=== PATIENT | female | born 1995 | race Caucasian/White ===

== ENCOUNTER → 2019-06-14 08:55 | Outpatient (CLI) | payer SELFPAY ==
[2019-06-14 09:38] LABS: HCG,Quantitative 40 mIU/mL
== END ==
PROVIDERS: Visit Provider Emergency Medicine
DX: Z32.00 Encounter for pregnancy test, result unknown (principal)
CPT/HCPCS: 36415; 84702

== ENCOUNTER → 2020-10-26 14:38 | Outpatient (CLI) | payer OTHER, SELFPAY ==
[2020-10-28 13:22] LABS: Covid-19 Nasal PCR Sendout Lex Not Detected
== END ==
PROVIDERS: PCP Pediatrics; Visit Provider Nurse Practitioner Family
DX: Z03.818 Encounter for observation for suspected exposure to other biological agents ruled out (principal)
CPT/HCPCS: U0004

== ENCOUNTER 2021-02-05 17:01 | Emergency (ER) | payer OTHER, SELFPAY ==
[2021-02-05 17:04] VITALS: BP 131/87; PULSE 87; RESP 19; TEMP 37.1; O2SAT 98; BMI 16.0
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
[2021-02-05 17:15] VITALS: PULSE 80; O2SAT 100
[2021-02-05 17:16] VITALS: BP 131/87; PULSE 76; PULSE 80; O2SAT 100
--- NOTE | 2021-02-05 17:39 | PC.NURSE ---
MAKENNA FROM [facility] RETURNED CALL. STATES THEY WILL BE SENDING RESOURCE INFO FOR PT
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
--- NOTE | 2021-02-05 18:49 | PC.NURSE ---
PELVIC EXAM PER DR MEDINA WITH FEMALE NURSE PRESENT
[2021-02-05 19:01] VITALS: BP 119/65; PULSE 78; RESP 16; TEMP 36.6; O2SAT 98
--- NOTE | 2021-02-05 19:01 | PC.NURSE ---
RESOURCE INFO GIVEN TO PT
== END 2021-02-05 19:03 | disposition home or self-care (01) ==
PROVIDERS: Emergency Provider Emergency Medicine; PCP Pediatrics
DX: Z04.41 Encounter for examination and observation following alleged adult rape (principal); F17.210 Nicotine dependence, cigarettes, uncomplicated
CPT/HCPCS: 99281

== ENCOUNTER 2021-10-08 04:30 | Emergency (ER) | payer BC, SELFPAY ==
[2021-10-08 04:32] VITALS: BP 135/91; PULSE 105; RESP 18; TEMP 36.6; O2SAT 100; BMI 16.2
[2021-10-08 04:41] VITALS: BMI 15.8
--- NOTE | 2021-10-08 04:42 | XR_ITS ---
PROCEDURE INFORMATION: Exam: XR Chest Exam date and time: 10/08/2021 4:42 AM Age: 26 years old Clinical indication: Pain; Shortness of breath; On breathing; Additional info: SOA, painful inspirations, headaches TECHNIQUE: Imaging protocol: XR of the chest. Views: 2 views. COMPARISON: No relevant prior studies available. FINDINGS: Lungs: No focal airspace disease. Pleural spaces: Unremarkable. No pleural effusion. No pneumothorax. Heart/Mediastinum: Cardiomediastinal silhouette is within normal limits. Bones/joints: Unremarkable. Organs: Cholecystectomy clips. IMPRESSION: No acute cardiopulmonary abnormality.
[2021-10-08 04:50] LABS: Coronavirus 19, PCR Not Detected (NotDetected); Influenza A, PCR Not Detected (NotDetected); Influenza B, PCR Not Detected (NotDetected)
[2021-10-08 04:54] LABS: Microscopic, Urine URINE MICROSCOPIC (MICROSCOPIC)
[2021-10-08 04:58] LABS: Basophils # 0.1 K/mm3 (0-0.2); Basophils % 1.4 % (0.1-2.0); Eosinophils # 0.1 K/mm3 (0.0-0.4); Eosinophils % 1.8 % (0.1-12.0); Hemoglobin 11.7 g/dL (12.2-16.2); Lymphocytes # 2.2 K/mm3 (0.7-4.5); Lymphocytes % 36.8 % (10-50); Mean Corpuscular HGB Conc 31.6 g/dL (31.8-35.4); Mean Corpuscular Hemoglobin 25.4 pg (27.0-31.2); Mean Corpuscular Volume 80.5 fl (81-99); Mean Platelet Volume 7.6 fl (7.4-10.4); Monocytes # 0.4 K/mm3 (0.1-1.0); Monocytes % 6.5 % (1.7-9.3); Neutrophils # 3.2 K/mm3 (1.8-7.8); Neutrophils % 53.5 % (37.0-80.0); Platelet Count 368 K/mm3 (142-424); Red Cell Distribution Width 13.3 % (11.5-17.5)
[2021-10-08 04:59] LABS: Appearance,Urine CLOUDY (Clear); Bilirubin,Urine Negative (Negative); Blood, Urine Negative (Negative); Color,Urine YELLOW (Yellow); Glucose,Urine (UA) Negative (Negative); Ketones,Urine Negative (Negative); Leukocyte Esterase,Urine 1+ (Negative); Nitrate,Urine Negative (Negative); Protein,Urine Negative (Negative); Specific Gravity, Urine 1.025 (1.005-1.030); Urobilinogen,Urine 0.2 EU/dl (0.2)
[2021-10-08 05:00] LABS: Urine Pregnancy, HCG Qual. Negative (Negative)
[2021-10-08 05:04] LABS: Alanine Aminotransferase 16 U/L (12-78); Albumin Level 4.6 g/dl (3.5-5.0); Albumin/Globulin Ratio 1.6 (1.1-1.8); Alkaline Phosphatase 53 U/L (38-126); Anion Gap 10.5 mEq/L (5-15); Aspartate Amino Transferase 23 U/L (14-36); Blood Urea Nitrogen 9 mg/dl (7-17); Calcium 9.1 mg/dl (8.4-10.2); Carbon Dioxide 28 mmol/L (22.0-30.0); Chloride 105 mmol/L (98-107); Creatinine Clearance Estimated 106 mL/min (50-200); Estimated Glomerular Filt Rate 103 ml/min (>60); GFR (African American) 124 ML/MIN (>60); Globulin 2.9 g/dL (1.3-3.2); Glucose 110 mg/dl (74-100); Potassium 3.5 mmoL/L (3.5-5.1); Sodium 140 mmol/L (136-145); Total Protein,Serum 7.5 g/dl (6.3-8.2)
[2021-10-08 05:07] LABS: Bilirubin,Total < 0.1 mg/dl (0.2-1.3)
[2021-10-08 05:09] LABS: C-Reactive Protein 0.6 mg/L (0-4)
[2021-10-08 05:13] LABS: Bacteria,Urine 1+ /lpf; Trichomonas,Urine 1+ /lpf
[2021-10-08 05:22] LABS: Procalcitonin 0.066 ng/mL (0.0-2.0)
[2021-10-08 05:25] LABS: Erythrocyte Sedimentation Rate 11 mm/hr (0-20)
--- NOTE | 2021-10-08 05:57 | HMH.EDSOB ---
ED Disposition Clinical Impression: Gastroenteritis, Trichomonal infection Disposition: Home, Self-Care Condition on Discharge: Good Instructions: DI for Shortness of Breath Additional Instructions: use meds and see pcp for follow up Prescriptions: metroNIDAZOLE [metroNIDAZOLE 500mg Tablet] 500 mg PO TID #21 tab Transmission Status: Pending to [facility] # ondansetron HCL [Zofran 4mg Tab] 4 mg PO TID #21 tab Transmission Status: Pending to [facility] # Referrals: Jackelyn Aldridge MD [Primary Care Provider] - - Critical Care Critical Care Time: No Attestation: On 10/08/21, the high probability of a clinically significant, sudden or life threatening deterioration of the following system(s) required my full and direct attention, intervention and personal management. The time I documented below is in addition to time spent performing reported procedures but includes the following listed in this critical care notation. Medical Decision Making - Medical Records Medical records reviewed: Yes: I reviewed the patient's medical records. - Lacho Inquiry Pt receiving controlled substance: No Vital Signs: 10/08/21 04:32 Temperature 98 F Temperature Source Oral Pulse Rate [Apical] 105 H Respiratory Rate 18 Blood Pressure [Right Arm] 135/91 H Blood Pressure Mean [Right Arm] 105 Blood Pressure Source [Right Arm] Automatic Cuff Blood Pressure Position [Right Arm] Sitting 02 Sat by Pulse Oximetry 100 Oxygen Delivery Method Room Air - Lab Data Lab results reviewed: Yes: I reviewed the patient's lab results. Lab Results 10/08/21 04:40: Urine Color Yellow, Urine Appearance Cloudy, Urine pH 6.0, Ur Specific [place] 1.025, Urine Protein Negative, Urine Glucose (UA) Negative, Urine Ketones Negative, Urine Blood Negative, Urine Nitrate Negative, Urine Bilirubin Negative, Urine Urobilinogen 0.2, Ur Leukocyte Esterase 1+ A, Urine WBC 3-5, Urine Bacteria 1+, Urine Trichomonas 1+ 10/08/21 04:40: WBC 6.0, RBC 4.60, Hgb 11.7 L, Hct 37.0, MCV 80.5 L, MCH 25.4 L, MCHC 31.6 L, RDW 13.3, Plt Count 368, MPV 7.6, Neut % (Auto) 53.5, Lymph % (Auto) 36.8, [place] % (Auto) 6.5, Eos % (Auto) 1.8, Baso % (Auto) 1.4, Neut # (Auto) 3.2, Lymph # (Auto) 2.2, [place] # (Auto) 0.4, Eos # (Auto) 0.1, Baso # (Auto) 0.1 10/08/21 04:40: Urine HCG, Qual Negative 10/08/21 04:40: Sodium 140, Potassium 3.5, Chloride 105, Carbon Dioxide 28, Anion Gap 10.5, BUN 9, Creatinine 0.70, Estimated Creat Clear 106, Estimated GFR 103, Est GFR ( Amer) 124, Glucose 110 H, Calcium 9.1, Total Bilirubin < 0.1 L, AST 23, ALT 16, Alkaline Phosphatase 53, C-Reactive Protein 0.6, Total Protein 7.5, Albumin 4.6, Globulin 2.9, Albumin/Globulin Ratio 1.6 10/08/21 04:40: ESR 11 10/08/21 04:40: Procalcitonin 0.066 10/08/21 04:45: SARS-CoV-2 (PCR) Not detected, Influenza A Untype (PCR) Not detected, Influenza Type B (PCR) Not detected Result diagrams: 10/08/21 04:40 10/08/21 04:40 Orders (Tests/Meds): ED MEDICATIONS Generic Name Dose Route Start Last Admin Trade Name Freq PRN Reason Stop Dose Admin Sodium Chloride 1,000 mls @ 999 mls/hr 10/08/21 04:45 10/08/21 05:11 Sod Chlor 0.9% 1000ml Bag IV 10/08/21 05:45 999 mls/hr .Q1H1M CATA Administration Discontinued Medications Generic Name Dose Route Start Last Admin Trade Name Freq PRN Reason Stop Dose Admin Dexamethasone Sodium Phosphate 10 mg 10/08/21 04:43 10/08/21 05:12 Dexamethasone 4mg/Ml 5ml Mdv IV 10/08/21 04:44 Not Given ONCE ONE Ketorolac Tromethamine 30 mg 10/08/21 04:43 10/08/21 05:11 Ketorolac 30mg/Ml Vial IV 10/08/21 04:44 30 mg ONCE ONE Administration Methylprednisolone Sodium Succinate 125 mg 10/08/21 05:12 10/08/21 05:13 Methylprednisolone Sod Succ 125mg Vial IV 10/08/21 05:13 125 mg ONCE ONE Administration Ondansetron HCl 4 mg 10/08/21 04:43 10/08/21 05:11 Ondansetron 4mg/2ml Vial IV 10/08/21 04:44 4 mg ONCE
[2021-10-08 06:32] VITALS: BP 124/72; PULSE 89; RESP 18; TEMP 36.7; O2SAT 100
== END 2021-10-08 06:33 | disposition home or self-care (01) ==
PROVIDERS: Emergency Provider Emergency Medicine; PCP Pediatrics
DX: K52.9 Noninfective gastroenteritis and colitis, unspecified (principal); A59.9 Trichomoniasis, unspecified; F17.210 Nicotine dependence, cigarettes, uncomplicated
CPT/HCPCS: 71046; 80053; 81001; 81025; 84145; 85025; 85651; 86140; 87086; 96365; 96375; 99283; C9803; J2405; U0003; U0005

== ENCOUNTER → 2021-10-08 15:54 | Outpatient (CLI) | payer BC, SELFPAY | PROVIDERS: PCP Pediatrics; Visit Provider Nurse Practitioner Family | DX: Z20.822 Contact with and (suspected) exposure to COVID-19 (principal); R05.1 Acute cough | CPT/HCPCS: C9803; U0003; U0005 ==

== ENCOUNTER 2022-01-21 12:25 | Emergency (ER) | payer BC, SELFPAY ==
[2022-01-21 12:40] VITALS: BP 106/73; PULSE 91; RESP 18; TEMP 36.7; O2SAT 100; BMI 17.2
--- NOTE | 2022-01-21 13:24 | HMH.EDUTC ---
[facility] Disposition Clinical Impression: Sinusitis Qualifiers: Sinusitis location: unspecified location Chronicity: unspecified Qualified Code(s): J32.9 - Chronic sinusitis, unspecified Disposition: Home, Self-Care Condition on Discharge: Good Instructions: Sinusitis, DI for Sinusitis Additional Instructions: *Monitor Temp, Over the counter Motrin or Tylenol as directed/as needed Tylenol every 4 hours and Motrin every 6 hours (as long as your family doctor has told you that you can take it) for fever or pain. and straight to ER if unable to lower temp less than 101.0 after medication given *Warm salt water gargles may help to soothe the throat *Throat Lozenges *Warm fluids like tea with honey may help to soothe the throat *Sleep elevated *Humidifier/Vaporizer Take medication as prescribed Return if needed Follow up IMMEDIATELY for new or worsening symptoms or no Noticeable improvement over the next 48-72 hours. 911 for difficulty breathing or swallowing Prescriptions: Amoxicillin/Potassium Clav [Amox-Clav 875-125 mg Tablet] 1 tab PO BID #14 tab Transmission Status: Pending to [facility] # methylPREDNISolone [Medrol 4mg tab] 4 mg PO DIRECTED #21 tab Transmission Status: Pending to [facility] # Referrals: Provider,Referral, [Primary Care Provider] - As needed Time of Disposition: 13:38 Medical Decision Making - Lacho Inquiry Pt receiving controlled substance: No Lacho was queried for this patient: No Vital Signs: 01/21/22 12:40 Temperature 98.0 F Temperature Source Oral Pulse Rate [Right Brachial] 91 H Respiratory Rate 18 Blood Pressure [Right Arm] 106/73 L Blood Pressure Mean [Right Arm] 84 Blood Pressure Source [Right Arm] Automatic Cuff Blood Pressure Position [Right Arm] Sitting 02 Sat by Pulse Oximetry 100 Oxygen Delivery Method Room Air Medical Decision Narrative: Reports last period one week ago denies [facility] HPI - General Stated complaint: pain in chest when breathing, feels heavy Time Seen by Provider: 01/21/22 13:26 Mode of Arrival: Ambulatory Source of Information: Patient Limitations: No Limitations Description of Symptoms (Recalled from Triage Doc. by RN): PATIENT C/O FEVER AND COUGH. HEENT Symptoms (Recalled from RN notes): No Resp Symptoms (Recalled from RN notes): Yes Skin Symptoms (Recalled from RN notes): No MS Symptoms (Recalled from RN notes): No Functional Status (Recalled from RN notes): WNL - History of Present Illness Provider Complaint: Patient state that she has been having sinus pain and pressure along with cough and chest congestion state that she feels like she is having drainage in the back of her throat States that last year she had bronchitis and she is worried it will turn into bronchitis again if she didnt get checked out - Related Data Previous Rx's Medication Instructions Recorded Amoxicillin/Potassium Clav 1 tab PO BID #14 tab 01/21/22 [Amox-Clav 875-125 mg Tablet] methylPREDNISolone [Medrol 4mg 4 mg PO DIRECTED #21 tab 01/21/22 tab] Allergies Allergy/AdvReac Type Severity Reaction Status Date / Time No Known Allergies Allergy Verified 06/12/19 08:47 - Worker's Comp Is this a Worker's Comp case?: No [facility] History - Hepatitis A Screen Drug use history?: No High risk sexual behaviors?: No History of sexually transmitted infection?: No Currently employed?: No Childcare worker?: No Do you have indoor plumbing?: Yes Do you have electricity?: Yes Attestation statement:: This patient has been screened for Hepatitis A risk factors. Medical History: Denies:: Diabetes Mellitus Type 1, Diabetes Mellitus Type 2 - Social History Smoking Status: Current some day smoker Tobacco Type: cigarettes # Packs/Day (cigarettes): 1 Alcohol Intake: never Occupational Status: employed ROS Obtained: Yes All systems reviewed & no additional complaints, Yes Systems reviewed as approp
[2022-01-21 13:42] VITALS: BP 106/73; PULSE 91; RESP 18; TEMP 36.7; O2SAT 100
== END 2022-01-21 13:48 | disposition home or self-care (01) ==
PROVIDERS: Emergency Provider Nurse Practitioner
DX: J32.8 Other chronic sinusitis (principal); R51.9 Headache, unspecified; F17.210 Nicotine dependence, cigarettes, uncomplicated
CPT/HCPCS: 99213; G0463

== ENCOUNTER 2022-09-22 15:24 | Emergency (ER) | payer BC, SELFPAY ==
[2022-09-22 16:20] VITALS: BP 112/81; PULSE 79; RESP 20; TEMP 36.7; O2SAT 100; BMI 16.9
[2022-09-22 16:39] LABS: UTC Strep Screen (Rapid) Negative (Negative)
--- NOTE | 2022-09-22 16:41 | EXP.UTC ---
Discharge Plan Disposition Patient Disposition: Home, Self-Care Condition: Good Referrals Follow up/Referrals: Jackelyn Aldridge MD [Primary Care Provider] - See instructions Activity Restrictions/Add. Instructions Additional Instructions/Restrictions: *Monitor Temp, Over the counter Motrin or Tylenol as directed/as needed Tylenol every 4 hours and Motrin every 6 hours (as long as your family doctor has told you that you can take it) for fever or pain. and straight to ER if unable to lower temp less than 101.0 after medication given *Warm salt water gargles may help to soothe the throat *Throat Lozenges? *Warm fluids like tea with honey may help to soothe the throat? *Sleep elevated *Humidifier/Vaporizer Your throat swab was sent for culture. Those results are typically sent to your primary care. Be sure to follow up in 2-3 days with your family doctor/primary care physician if no improvement so they can review those result and treat if necessary. If you don?t have a primary care doctor, I recommend you get one but in the mean time, you will have to return to a walk in clinic Follow up IMMEDIATELY for new or worsening symptoms or no Noticeable improvement over the next 48-72 hours. 911 for difficulty breathing or swallowing Clinical Impressions Clinical Impression: Sore throat (viral) Instructions Patient Instructions: Sore Throat Discharge ED Provider: María Elena Lopez [facility] General Stated complaint: sore throat, fever Mode of Arrival: Ambulatory Source of Information: Patient Limitations: No Limitations Time Seen by Provider: 09/22/22 16:41 Description of Symptoms (Recalled from Triage Doc. by RN): PATIENT C/O SORE THROAT THAT STARTED LAST NIGHT HEENT Symptoms (Recalled from RN notes): Yes Resp Symptoms (Recalled from RN notes): No Skin Symptoms (Recalled from RN notes): No MS Symptoms (Recalled from RN notes): No Functional Status (Recalled from RN notes): WNL History of Present Illness Provider Complaint: Patient states that she started having sore throat last night States that today her throat was still hurting so she came in wanting to get checked for strep throat Related Data Allergies Allergy/AdvReac Type Severity Reaction Status Date / Time No Known Allergies Allergy Verified 06/12/19 08:47 Worker's Comp Is this a Worker's Comp case?: No PFSH PFSH Surgical History (Updated 09/22/22 @ 16:38 by Leydi Leggett RN) History of cholecystectomy Social History (Updated 09/22/22 @ 16:38 by Leydi Leggett RN) Smoking Status: Current some day smoker tobacco type: cigarettes packs per day: 1 alcohol intake: never current occupational status: employed Travel in the last 8 weeks: None ROS Obtained: Yes All systems reviewed & no additional complaints except as documented and Yes Systems reviewed as appropriate & no additional complaints except as documented Constitutional Constitutional: Reports system reviewed and no additional complaints, except as documented and Reports as per HPI ENT Ears, Nose, Mouth, and Throat: Reports system reviewed and no additional complaints, except as documented, Reports as per HPI and Reports sore throat Cardiovascular Cardiovascular: Reports system reviewed and no additional complaints, except as documented and Reports as per HPI Respiratory Respiratory: Reports system reviewed and no additional complaints, except as documented and Reports as per HPI Physical Exam General General appearance: alert and in no apparent distress Expanded ENT Exam Throat exam: Present tonsillar erythema; Absent tonsillomegaly or tonsillar exudate Respiratory Respiratory exam: Present normal lung sounds bilaterally and respiratory distress Cardiovascular Cardiovascular exam: Present regular rate, normal rhythm and normal heart sounds Neurological Exam Neurological exam: Present alert, oriented X3 and normal gait Medical Decision Making Lacho Inqui
[2022-09-22 16:57] VITALS: BP 112/81; PULSE 79; RESP 20; TEMP 36.7; O2SAT 100
== END 2022-09-22 16:58 | disposition home or self-care (01) ==
PROVIDERS: Emergency Provider Nurse Practitioner; PCP Pediatrics
DX: J02.9 Acute pharyngitis, unspecified (principal)
CPT/HCPCS: 87880; 99212; G0463

== ENCOUNTER → 2022-09-30 10:38 | Outpatient (CLI) | payer BC, SELFPAY ==
--- NOTE | 2022-09-30 10:45 | XR_ITS ---
FINAL REPORT TECHNIQUE: Chest PA & Lateral CLINICAL HISTORY: FEVER, SOA FINDINGS: 2 views of the chest were performed. The heart size is normal. The mediastinum is within normal limits. There is no acute cardiopulmonary process. There are no pleural effusions. There is no pneumothorax. The bony thorax appears intact. IMPRESSION: No acute cardiopulmonary process. Reviewed, Interpreted and Dictated by Aurelio Mc MD Transcribed by Yuko Forrester Authenticated and [facility]
[2022-09-30 11:18] LABS: Adenovirus,PCR Not Detected (NotDetected); Bordetella Pertussis Not Detected (NotDetected); Chlamydophila Pneumoniae, PCR Not Detected (NotDetected); Coronavirus 19, PCR Not Detected (NotDetected); Coronavirus 229E Not Detected (NotDetected); Coronavirus NL63 Not Detected (NotDetected); Coronavirus OC43 Not Detected (NotDetected); Coronovirus HKU1,PCR Not Detected (NotDetected); Human Metapneumovirus Not Detected (NotDetected); Influenza A, PCR Not Detected (NotDetected); Influenza AH1, 2009 Not Detected (NotDetected); Influenza AH1, PCR Not Detected (NotDetected); Influenza AH3,PCR Not Detected (NotDetected); Influenza B, PCR Not Detected (NotDetected); Mycoplasma Pneumoniae, PCR Not Detected (NotDetected); Parainfluenza 1, PCR Not Detected (NotDetected); Parainfluenza 2, PCR Not Detected (NotDetected); Parainfluenza 3, PCR Not Detected (NotDetected); Parainfluenza 4, PCR Not Detected (NotDetected); Respiratory Syncytial Virus Not Detected (NotDetected); Rhinovirus/Enterovirus Not Detected (NotDetected)
== END ==
PROVIDERS: PCP Nurse Practitioner Family; Visit Provider Physician Assistant
DX: R50.9 Fever, unspecified (principal)
CPT/HCPCS: 71046; 87581; 87632; 87798; C9803; U0003; U0005

== ENCOUNTER 2023-07-13 22:52 | Emergency (ER) | payer OTHER, SELFPAY ==
[2023-07-13 22:54] VITALS: BP 152/97; PULSE 79; RESP 16; TEMP 36.8; O2SAT 98; BMI 17.1
--- NOTE | 2023-07-13 23:47 | HMH.EDGENADL ---
Discharge Plan Disposition Patient Disposition: Home, Self-Care Condition: Good Referrals Follow up/Referrals: Bridget Alvarez APRN [Primary Care Provider] - See instructions Activity Restrictions/Add. Instructions Additional Instructions/Restrictions: Please follow-up with your primary care provider. Please return to the emergency department if you develop any new or worsening symptoms or become concerned for your health. Clinical Impressions Clinical Impression: Foreign body finger Discharge ED Provider: Brett Gonzalez General Adult HPI General Chief complaint: PAIN Stated complaint: ring stuck on LT hand Time Seen by Provider: 07/13/23 23:43 Mode of Arrival: Ambulatory Source of Information: Patient Limitations: No Limitations Description of Symptoms (Recalled from ER Triage Doc. by RN): Pt states her left ring finger joint started swelling and her wedding band is hurting her finger. Pt states she tried removing it with dremel at home. History of Present Illness HPI narrative: 28-year-old female reported history of Marfan's and heart failure presents with rings that are stuck on her hand. She has 2 rings on her left ring finger that she is unable to get off because she has had some finger swelling. She attempted to get them off at home but was unsuccessful. She reports no significant concern for other emergent pathology and does not request work-up for swelling. Related Data Allergies Allergy/AdvReac Type Severity Reaction Status Date / Time No Known Allergies Allergy Verified 06/12/19 08:47 [facility] Disclaimer: The information contained in this section may have been updated after the patient was seen, as this information can be updated by other users. Surgical History (Updated 09/22/22 @ 16:38 by Leydi Leggett RN) History of cholecystectomy Social History (Updated 09/22/22 @ 16:38 by Leydi Leggett RN) Smoking Status: Never smoker alcohol intake: never current occupational status: employed Travel in the last 8 weeks: None ROS Obtained: Yes All systems reviewed & no additional complaints except as documented Physical Exam General General appearance: alert and in no apparent distress Comment: Marfanoid habitus Head Head exam: atraumatic and normocephalic Eye Eye exam: Present normal appearance, PERRL and EOMI ENT ENT exam: Present normal oropharynx and normal external ear exam Neck Neck exam: Present normal inspection and full ROM Chest Chest inspection: Present normal inspection and symmetric chest wall rise; Absent tenderness Respiratory Respiratory exam: Present normal lung sounds bilaterally; Absent respiratory distress Cardiovascular Cardiovascular exam: Present regular rate and normal rhythm Abdominal Exam Abdominal exam: Present soft; Absent distention, tenderness or guarding Extremities Exam Extremities exam: Present other (Mild swelling of the fingers, [address] on the left fourth digit, unable to be removed) Back Exam Back exam: Present normal inspection; Absent tenderness Neurological Exam Neurological exam: Present alert and oriented X3; Absent motor sensory deficit Psychiatric Psychiatric exam: Present normal affect and normal mood Skin Skin exam: Present warm, dry and normal color Lymphatic Lymphatic Findings: no adenopathy Medical Decision Making Medical Records Medical records reviewed: Yes I reviewed the patient's medical records. Lacho Inquiry Pt receiving controlled substance: No Lacho was queried for this patient: No Vital Signs: 07/13/23 22:54 07/13/23 23:55 Temperature 98.3 F 98.3 F Temperature Source Oral Oral Pulse Rate 72 Pulse Rate [Left] 79 Respiratory Rate 16 16 Blood Pressure 146/74 H Blood Pressure [Right Arm] 152/97 H Blood Pressure Mean [Right Arm] 115 Blood Pressure Source [Right Arm] Automatic Cuff Blood Pressure Position [Right Arm] Sitting 02 Sat by Pulse Oximetry 98 Oxygen Delivery Method Room
[2023-07-13 23:55] VITALS: BP 146/74; PULSE 72; RESP 16; TEMP 36.8; O2SAT 98
== END 2023-07-13 23:56 | disposition home or self-care (01) ==
PROVIDERS: Emergency Provider Emergency Medicine; PCP Nurse Practitioner Family
DX: S60.445A External constriction of left ring finger, initial encounter (principal); Q87.40 Marfan syndrome, unspecified; I50.9 Heart failure, unspecified; W49.04XA Ring or other jewelry causing external constriction, initial encounter
CPT/HCPCS: 99283

== ENCOUNTER 2024-01-26 10:05 | Outpatient (CLI) | payer OTHER, SELFPAY ==
[2024-01-26 10:39] LABS: Basophils # 0.1 K/mm3 (0-0.2); Eosinophils # 0.1 K/mm3 (0.0-0.4); Eosinophils % 2.1 % (0.1-12.0); Hematocrit 38.7 % (37.0-47.0); Hemoglobin 12.2 g/dL (12.2-16.2); Lymphocytes # 1.7 K/mm3 (0.7-4.5); Lymphocytes % 30.9 % (10-50); Mean Corpuscular HGB Conc 31.7 g/dL (31.8-35.4); Mean Corpuscular Hemoglobin 26.7 pg (27.0-31.2); Mean Corpuscular Volume 84.2 fl (81-99); Mean Platelet Volume 7.6 fl (7.4-10.4); Monocytes # 0.4 K/mm3 (0.1-1.0); Monocytes % 6.5 % (1.7-9.3); Neutrophils # 3.3 K/mm3 (1.8-7.8); Neutrophils % 59.6 % (37.0-80.0); Platelet Count 246 K/mm3 (142-424); Red Blood Count 4.59 M/mm3 (4.20-5.40); Red Cell Distribution Width 14.3 % (11.5-17.5); White Blood Count 5.5 K/mm3 (4.8-10.8)
[2024-01-26 11:15] LABS: Alanine Aminotransferase 19 U/L (12-78); Albumin Level 4.3 g/dl (3.5-5.0); Albumin/Globulin Ratio 1.6 (1.1-1.8); Alkaline Phosphatase 64 U/L (38-126); Anion Gap 11.9 mEq/L (5-15); Aspartate Amino Transferase 25 U/L (14-36); Bilirubin,Total 0.3 mg/dl (0.2-1.3); Blood Urea Nitrogen 7 mg/dl (7-17); Calcium 8.7 mg/dl (8.4-10.2); Carbon Dioxide 23 mmol/L (22.0-30.0); Chloride 108 mmol/L (98-107); Estimated Glomerular Filt Rate 120 ml/min (>60); GFR (African American) 145 ML/MIN (>60); Globulin 2.7 g/dL (1.3-3.2); Glucose 73 mg/dl (74-100); Potassium 3.9 mmoL/L (3.5-5.1); Sodium 139 mmol/L (136-145)
[2024-01-26 11:32] LABS: HCG,Quantitative < 2 mIU/ml (0-5.42)
== END 2024-01-26 23:59 ==
LOC: LAB 10:06
PROVIDERS: PCP Nurse Practitioner; Visit Provider Obstetrics & Gynecology
DX: N96 Recurrent pregnancy loss (principal)
CPT/HCPCS: 36415; 80053; 84702; 85025

== ENCOUNTER 2024-02-02 06:01 | Day surgery (SDC) | payer OTHER, SELFPAY ==
[2024-02-01 09:53] VITALS: BMI 16.7
[2024-02-02] VITALS (11 sets, daily range): BP systolic 104–144; BP diastolic 73–94; PULSE 53–98; RESP 13–24; TEMP 36.3–43; O2SAT 98–100
[2024-02-02] MEDS: LACTATED RINGERS 1000ML 1,000 ML 25 ML IV (06:36)
[2024-02-02] MEDS: ACETAMINOPHEN 500MG TAB 1000 MG PO (06:37)
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
--- NOTE | 2024-02-02 07:13 | ECG_ITS ---
APPROVED REPORT Exam: Resting ECG HR:62 bpm ECG Measurements Heart Rate 62 AXES ID 138 P 74 QRSd 88 QRS 85 QT 417 T 78 QTc 423 Conclusion SINUS RHYTHM NORMAL ECG UNCONFIRMED REPORT Electronically signed by : Ernst Lo MD 02/03/2024 09:16:47
[2024-02-02] MEDS: BUPIVACAINE 0.5% 30ML VIAL 150 MG (07:52)
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
--- NOTE | 2024-02-02 08:53 | EXP.ANES.I ---
[facility] Anesthesia Record Part I Anesthesia Record I Intake, IV Amount: 900 Hydration: Adequate Estimated blood loss (mL): 2 Urine output (mL): 100 Blood Products used (#): none Blood Pressure: 104/73 SaO2: 100 Pulse Rate: 54 Airway Patency: Patent Respiratory Rate: 14 Temperature: 97.4 F Patient is:: Drowsy and Stable Stable to PACU at:: 08:48
[2024-02-02] MEDS: MEPERIDINE 25MG/ML 1ML SYRINGE 12.5 MG IV ×2 (09:15→09:25)
[2024-02-02] MEDS: MORPHINE 2MG/ML SYRINGE 2 MG IV ×2 (09:15→09:30)
--- NOTE | 2024-02-05 08:27 | EXP.ANES.II ---
[facility] [place] Anesthesia Record Part II Anesthesia Record Part II Discharge Time: 09:32 Destination: Surgical Day Care (OP Surgery) PACU nurse assessment reviewed?: Yes Patient Condition:: Good Anesthesia Complications:: None Swallowing reflex intact?: Yes Airway Patency: Patent Cyanosis?: No Blood Pressure: 135/77 SaO2: 100 Respiratory Rate: 18 Pulse Rate: 73 Temperature: 97.4 F Mental Status: Alert & Oriented Pain level:: 2 Nausea and/or vomitting:: None Intake, IV Amount: 0 Hydration: Adequate
[2024-02-05 08:28] VITALS: BP 135/77; PULSE 73; RESP 18; TEMP 36.3; O2SAT 100
== END 2024-02-02 09:52 | disposition home or self-care (01) ==
PROVIDERS: PCP Nurse Practitioner; Visit Provider Obstetrics & Gynecology
PROC: (CPT 58661; principal; 2024-02-02 07:30)
DX: Z30.2 Encounter for sterilization (principal); N96 Recurrent pregnancy loss; Q87.40 Marfan syndrome, unspecified; F43.10 Post-traumatic stress disorder, unspecified; K66.0 Peritoneal adhesions (postprocedural) (postinfection); N80.30 Endometriosis of pelvic peritoneum, unspecified
CPT/HCPCS: 58661; 93005; J3490; J2405

== ENCOUNTER 2024-02-05 14:44 | Outpatient (CLI) | payer OTHER, SELFPAY ==
[2024-02-05 15:23] LABS: Basophils # 0.1 K/mm3 (0-0.2); Basophils % 1.1 % (0.1-2.0); Eosinophils # 0.2 K/mm3 (0.0-0.4); Eosinophils % 3.6 % (0.1-12.0); Hematocrit 39.6 % (37.0-47.0); Hemoglobin 12.6 g/dL (12.2-16.2); Lymphocytes # 1.4 K/mm3 (0.7-4.5); Lymphocytes % 32.1 % (10-50); Mean Corpuscular HGB Conc 31.7 g/dL (31.8-35.4); Mean Corpuscular Hemoglobin 26.3 pg (27.0-31.2); Mean Platelet Volume 7.5 fl (7.4-10.4); Monocytes # 0.2 K/mm3 (0.1-1.0); Monocytes % 5.2 % (1.7-9.3); Neutrophils # 2.6 K/mm3 (1.8-7.8); Neutrophils % 58.1 % (37.0-80.0); Platelet Count 306 K/mm3 (142-424); Red Blood Count 4.77 M/mm3 (4.20-5.40); Red Cell Distribution Width 14.3 % (11.5-17.5); White Blood Count 4.5 K/mm3 (4.8-10.8)
[2024-02-05 15:54] LABS: Alanine Aminotransferase 46 U/L (12-78); Albumin Level 4.2 g/dl (3.5-5.0); Albumin/Globulin Ratio 1.5 (1.1-1.8); Alkaline Phosphatase 89 U/L (38-126); Anion Gap 8.8 mEq/L (5-15); Aspartate Amino Transferase 40 U/L (14-36); Blood Urea Nitrogen 9 mg/dl (7-17); Carbon Dioxide 28 mmol/L (22.0-30.0); Chloride 106 mmol/L (98-107); Estimated Glomerular Filt Rate 100 ml/min (>60); GFR (African American) 121 ML/MIN (>60); Globulin 2.8 g/dL (1.3-3.2); Glucose 104 mg/dl (74-100); Potassium 3.8 mmoL/L (3.5-5.1); Sodium 139 mmol/L (136-145)
[2024-02-05 15:57] LABS: Bilirubin,Total 0.1 mg/dl (0.2-1.3)
== END 2024-02-05 23:59 ==
LOC: LAB 14:44
PROVIDERS: PCP Nurse Practitioner; Visit Provider Obstetrics & Gynecology
DX: R10.84 Generalized abdominal pain (principal); R50.9 Fever, unspecified; Z98.890 Other specified postprocedural states
CPT/HCPCS: 36415; 80053; 85025

== ENCOUNTER 2024-02-12 09:49 | Emergency (ER) | payer OTHER, SELFPAY ==
[2024-02-12 09:51] VITALS: BP 133/90; PULSE 87; RESP 15; TEMP 36.6; O2SAT 98; BMI 16.7
[2024-02-12 09:55] VITALS: BP 133/90; PULSE 85; O2SAT 100
[2024-02-12 10:00] VITALS: BP 134/98; PULSE 74; O2SAT 100
[2024-02-12 10:31] VITALS: BP 127/89; PULSE 72; O2SAT 100
--- NOTE | 2024-02-12 10:33 | PC.NURSE ---
Jaime Sandoval rounded on pt. No needs voiced. Call light within reach.
--- NOTE | 2024-02-12 10:44 | CT_ITS ---
FINAL REPORT TECHNIQUE: Thin section axial images were obtained through the abdomen after intravenous contrast. Reconstruction images were obtained from the axial data. Exam was performed using dose reduction techniques. CLINICAL HISTORY: tubal 02/01, fevers and increased pain since FINDINGS: The lung bases are clear. There are focal fatty changes adjacent to the falciform ligament. The liver is otherwise homogeneous. The gallbladder is absent. The spleen, adrenal glands, and pancreas are unremarkable. There is very mild prominence to the right renal collecting system and right ureter to the level of the urinary bladder. There is no left renal stone or hydronephrosis.. Abdominal GI tract is without acute abnormality. There is no abdominal lymphadenopathy or ascites. The uterus is unremarkable. The ovaries demonstrate physiologic changes. The appendix is not visualized. There is a moderate amount of retained stool in the proximal colon. There is wall thickening of the urinary bladder which may represent cystitis. There is a small amount of free fluid in the pelvis which is likely physiologic. There is no pelvic lymphadenopathy. No acute osseous abnormalities identified. IMPRESSION: Wall thickening of the urinary bladder may represent cystitis. Mild prominence of the right renal collecting system, possibly reactive. Reviewed, Interpreted and Dictated by Delmis Woods MD Transcribed by Yuko Forrester Authenticated and . [facility]
--- NOTE | 2024-02-12 10:44 | XR_ITS ---
FINAL REPORT CLINICAL HISTORY: postop fever unknown origin COMPARISON: 09/30/2022 FINDINGS: A portable view of the chest was obtained. Cardiac and mediastinal silhouettes are within normal limits. The lungs are clear. There is no pleural effusion or pneumothorax. IMPRESSION: No acute process on this portable exam. Reviewed, Interpreted and Dictated by Delmis Woods MD Transcribed by Yuko Forrester Authenticated and . [facility]
[2024-02-12 10:50] LABS: Microscopic, Urine URINE MICROSCOPIC (MICROSCOPIC)
[2024-02-12 10:53] LABS: Basophils # 0.1 K/mm3 (0-0.2); Basophils % 1.2 % (0.1-2.0); Eosinophils # 0.5 K/mm3 (0.0-0.4); Eosinophils % 8.3 % (0.1-12.0); Hematocrit 39.2 % (37.0-47.0); Hemoglobin 12.7 g/dL (12.2-16.2); Lymphocytes # 1.9 K/mm3 (0.7-4.5); Mean Corpuscular HGB Conc 32.5 g/dL (31.8-35.4); Mean Corpuscular Hemoglobin 26.8 pg (27.0-31.2); Mean Corpuscular Volume 82.5 fl (81-99); Mean Platelet Volume 7.6 fl (7.4-10.4); Monocytes # 0.3 K/mm3 (0.1-1.0); Monocytes % 5.5 % (1.7-9.3); Neutrophils # 2.9 K/mm3 (1.8-7.8); Platelet Count 285 K/mm3 (142-424); Red Blood Count 4.75 M/mm3 (4.20-5.40); White Blood Count 5.6 K/mm3 (4.8-10.8)
[2024-02-12 10:59] LABS: Appearance,Urine CLEAR (Clear); Bilirubin,Urine Negative (Negative); Blood, Urine TRACE-I (Negative); Color,Urine YELLOW (Yellow); Glucose,Urine (UA) Negative (Negative); Ketones,Urine Negative (Negative); Leukocyte Esterase,Urine Negative (Negative); Nitrate,Urine Negative (Negative); Protein,Urine Negative (Negative); Specific Gravity, Urine 1.025 (1.005-1.030); Urobilinogen,Urine 0.2 EU/dl (0.2)
[2024-02-12] MEDS: IOPAMIDOL-370 (76%);100ML BOTTLE 75 ML IV (10:59)
[2024-02-12 11:04] LABS: Chloride 108 mmol/L (98-107); Potassium 3.3 mmoL/L (3.5-5.1); Sodium 139 mmol/L (136-145)
[2024-02-12 11:06] LABS: Lactic Acid 0.9 mmol/L (0.7-2.1)
[2024-02-12] MEDS: LACTATED RINGERS 1000ML 1,000 ML 999 ML IV (11:06)
[2024-02-12 11:07] LABS: Alanine Aminotransferase 32 U/L (12-78); Albumin Level 4.1 g/dl (3.5-5.0); Albumin/Globulin Ratio 1.3 (1.1-1.8); Alkaline Phosphatase 100 U/L (38-126); Anion Gap 7.3 mEq/L (5-15); Aspartate Amino Transferase 34 U/L (14-36); Bilirubin,Total 0.2 mg/dl (0.2-1.3); Blood Urea Nitrogen 7 mg/dl (7-17); Calcium 9.5 mg/dl (8.4-10.2); Carbon Dioxide 27 mmol/L (22.0-30.0); Creatinine Clearance Estimated 106 mL/min (50-200); Estimated Glomerular Filt Rate 100 ml/min (>60); GFR (African American) 121 ML/MIN (>60); Globulin 3.2 g/dL (1.3-3.2); Glucose 97 mg/dl (74-100); Total Protein,Serum 7.3 g/dl (6.3-8.2)
[2024-02-12 11:08] LABS: Coronavirus 19, PCR Not Detected (NotDetected); Influenza A, PCR Not Detected (NotDetected); Influenza B, PCR Not Detected (NotDetected)
[2024-02-12 11:17] LABS: Bacteria,Urine Trace /lpf; Mucus,Urine Trace /lpf; RBC,Urine Occasional #/hpf (0-3)
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
[2024-02-12 12:28] VITALS: BP 126/72; PULSE 67; RESP 16; TEMP 36.6; O2SAT 100
== END 2024-02-12 12:30 | disposition home or self-care (01) ==
PROVIDERS: Emergency Provider Emergency Medicine; PCP Nurse Practitioner
DX: R10.9 Unspecified abdominal pain (principal); R50.9 Fever, unspecified; Q87.40 Marfan syndrome, unspecified; Z87.891 Personal history of nicotine dependence
CPT/HCPCS: 71045; 74177; 80053; 81001; 83605; 85025; 87040; 87636; 96360; 99284; Q9967

== ENCOUNTER 2024-09-02 20:33 | Emergency (ER) | payer OTHER, SELFPAY ==
[2024-09-02 20:34] VITALS: BP 134/102; PULSE 106; RESP 18; TEMP 36.6; O2SAT 100; BMI 16.9
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
[2024-09-02 20:41] VITALS: BP 134/102; PULSE 28; O2SAT 97
[2024-09-02 21:03] LABS: Microscopic, Urine URINE MICROSCOPIC (MICROSCOPIC)
[2024-09-02] MEDS: ACETAMINOPHEN 500MG TAB 1000 MG PO (21:07)
[2024-09-02] MEDS: KETOROLAC 30MG/ML VIAL 30 MG IV (21:07)
[2024-09-02 21:16] LABS: Appearance,Urine CLEAR (Clear); Bilirubin,Urine Negative (Negative); Blood, Urine Negative (Negative); Color,Urine YELLOW (Yellow); Glucose,Urine (UA) Negative (Negative); Ketones,Urine Negative (Negative); Leukocyte Esterase,Urine Negative (Negative); Nitrate,Urine Negative (Negative); PH,Urine 7.5 (5.0-8.5); Protein,Urine Negative (Negative); Urobilinogen,Urine 0.2 EU/dl (0.2)
[2024-09-02 21:18] LABS: Basophils # 0.1 K/mm3 (0-0.2); Basophils % 1.3 % (0.1-2.0); Eosinophils # 0.1 K/mm3 (0.0-0.4); Eosinophils % 2.7 % (0.1-12.0); Hematocrit 38.7 % (37.0-47.0); Hemoglobin 12.8 g/dL (12.2-16.2); Lymphocytes # 1.4 K/mm3 (0.7-4.5); Lymphocytes % 27.6 % (10-50); Mean Corpuscular HGB Conc 33.1 g/dL (31.8-35.4); Mean Corpuscular Hemoglobin 26.3 pg (27.0-31.2); Mean Corpuscular Volume 79.3 fl (81-99); Mean Platelet Volume 6.9 fl (7.4-10.4); Monocytes # 0.3 K/mm3 (0.1-1.0); Monocytes % 5.9 % (1.7-9.3); Neutrophils # 3.2 K/mm3 (1.8-7.8); Neutrophils % 62.4 % (37.0-80.0); Platelet Count 296 K/mm3 (142-424); Red Blood Count 4.88 M/mm3 (4.20-5.40); Red Cell Distribution Width 14.4 % (11.5-17.5); White Blood Count 5.2 K/mm3 (4.8-10.8)
[2024-09-02 21:23] LABS: Albumin Level 4.5 g/dl (3.5-5.0); Chloride 105 mmol/L (98-107); Potassium 3.7 mmoL/L (3.5-5.1); Sodium 139 mmol/L (136-145)
[2024-09-02 21:26] LABS: Alanine Aminotransferase 27 U/L (12-78); Albumin/Globulin Ratio 1.5 (1.1-1.8); Alkaline Phosphatase 59 U/L (38-126); Anion Gap 10.7 mEq/L (5-15); Aspartate Amino Transferase 27 U/L (14-36); Bilirubin,Total 0.5 mg/dl (0.2-1.3); Blood Urea Nitrogen 5 mg/dl (7-17); Carbon Dioxide 27 mmol/L (22.0-30.0); Creatinine Clearance Estimated 108 mL/min (50-200); Estimated Glomerular Filt Rate 100 ml/min (>60); GFR (African American) 121 ML/MIN (>60); Globulin 3.1 g/dL (1.3-3.2); Total Protein,Serum 7.6 g/dl (6.3-8.2)
[2024-09-02 21:27] LABS: Calcium 9.4 mg/dl (8.4-10.2); Glucose 91 mg/dl (74-100)
[2024-09-02 21:30] VITALS: BP 109/67; PULSE 77; O2SAT 100
[2024-09-02 21:33] LABS: HCG Qualitative, Serum Negative (Negative)
[2024-09-02 21:35] LABS: Bacteria,Urine 1+ /lpf
[2024-09-02 22:00] VITALS: BP 112/67; PULSE 85; O2SAT 100
--- NOTE | 2024-09-02 22:03 | PC.NURSE ---
rounded on patient, no needs at this time
[2024-09-02 22:17] LABS: HIV (1&2) Antibody Rapid NONREACTIVE (NONREACTIVE)
[2024-09-02 22:30] VITALS: BP 116/72; PULSE 79; O2SAT 99
[2024-09-02 22:35] VITALS: BP 104/72; PULSE 77; RESP 18; TEMP 36.6; O2SAT 100
[2024-09-04 05:27] LABS: HCV Ab Non Reactive (Non Reactive)
== END 2024-09-02 22:37 | disposition home or self-care (01) ==
PROVIDERS: Physician Assistant; Emergency Provider Emergency Medicine; PCP Nurse Practitioner
DX: R10.9 Unspecified abdominal pain (principal)
CPT/HCPCS: 80053; 81001; 84703; 85025; 86803; 87389; 96374; 99283; J1885

== ENCOUNTER 2025-03-16 21:50 | Emergency (ER) | payer OTHER, SELFPAY ==
[2025-03-16 21:54] VITALS: BP 119/70; PULSE 92; RESP 18; TEMP 36.1; O2SAT 100; BMI 16.5
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
[2025-03-16] MEDS: ONDANSETRON 4MG/2ML VIAL 4 MG IV (22:22)
[2025-03-16] MEDS: MORPHINE 4MG/ML SYRINGE 4 MG IV (22:23)
[2025-03-16 22:24] LABS: Basophils % 0.6 % (0.1-2.0); Eosinophils # 0.2 Kmm3 (0.0-0.4); Eosinophils % 2.4 % (0.1-12.0); Hematocrit 35.7 % (37.0-47.0); Hemoglobin 11.5 g/dL (12.2-16.2); Lymphocytes # 3.1 K/mm3 (0.7-4.5); Lymphocytes % 46.4 % (10-50); Mean Corpuscular HGB Conc 32.2 g/dL (31.8-35.4); Mean Corpuscular Hemoglobin 25.8 pg (27.0-31.2); Mean Platelet Volume 9.2 fl (7.4-10.4); Monocytes # 0.5 K/mm3 (0.1-1.0); Monocytes % 7.2 % (1.7-9.3); Neutrophils # 2.9 K/mm3 (1.8-7.8); Neutrophils % 43.4 % (37.0-80.0); Nucleated Red Blood Cells # 0 10^3/uL; Nucleated Red Blood Cells % 0 %; Platelet Count 309 K/mm3 (142-424); Red Blood Count 4.46 M/mm3 (4.20-5.40); Red Cell Distribution Width 13.8 % (11.5-17.5); Red Cell Distribution Width-SD 40.1 fL; White Blood Count 6.7 K/mm3 (4.8-10.8)
[2025-03-16 22:33] LABS: Albumin Level 4.3 g/dl (3.5-5.0); Chloride 108 mmol/L (98-107); Potassium 3.6 mmoL/L (3.5-5.1); Sodium 139 mmol/L (136-145)
[2025-03-16 22:35] LABS: HCG Qualitative, Serum Negative (Negative)
[2025-03-16 22:36] LABS: Alanine Aminotransferase 21 U/L (12-78); Albumin/Globulin Ratio 1.5 (1.1-1.8); Alkaline Phosphatase 76 U/L (38-126); Anion Gap 11.6 mEq/L (5-15); Aspartate Amino Transferase 25 U/L (14-36); Bilirubin,Total 0.3 mg/dl (0.2-1.3); Blood Urea Nitrogen 6 mg/dl (7-17); Carbon Dioxide 23 mmol/L (22.0-30.0); Creatinine Clearance Estimated 105 mL/min (50-200); Estimated Glomerular Filt Rate 100 ml/min (>60); GFR (African American) 121 ML/MIN (>60); Globulin 2.9 g/dL (1.3-3.2); Lipase 168 U/L (23-300); Total Protein,Serum 7.2 g/dl (6.3-8.2)
--- NOTE | 2025-03-16 22:36 | CT_ITS ---
PROCEDURE INFORMATION: Exam: CT Abdomen And Pelvis With Contrast Exam date and time: 03/16/2025 10:54 PM Age: 30 years old Clinical indication: Abdominal pain; Prior surgery; Surgery date: 1-6 months; Surgery type: Hysterectomy; Additional info: S/P hysterectomy, severe abd pain after sex TECHNIQUE: Imaging protocol: Computed tomography of the abdomen and pelvis with contrast. Radiation optimization: All CT scans at this facility use at least one of these dose optimization techniques: automated exposure control; mA and/or kV adjustment per patient size (includes targeted exams where dose is matched to clinical indication); or iterative reconstruction. Contrast material: ISOVUE; Contrast volume: 75 ml; Contrast route: IV; COMPARISON: CT ABDOMEN PELVIS W CON 02/12/2024 10:58 AM FINDINGS: Liver: Normal. No mass. Gallbladder and biliary ducts: Cholecystectomy Pancreas: Normal. No ductal dilation. Spleen: Normal. No splenomegaly. Adrenal glands: Normal. No mass. Kidneys and ureters: See Urinary bladder finding. Stomach and bowel: Prominent small bowel loops in the deep pelvis which are inflamed which are minimally distended with wall enhancement reflecting enteritis. Appendix: Normal appendix Intraperitoneal space: Mild physiologic free fluid in the pelvis Vasculature: Unremarkable. No abdominal aortic aneurysm. Lymph nodes: Unremarkable. No enlarged lymph nodes. Urinary bladder: Urinary bladder distended. Mild bilateral hydronephrosis and ureteral dilatation likely due to back pressure from the distended urinary bladder. Reproductive: Hysterectomy Bones/joints: Unremarkable. No acute fracture. Soft tissues: Unremarkable. IMPRESSION: Prominent small bowel loops in the deep pelvis which are inflamed which are minimally distended with wall enhancement reflecting enteritis. Mild physiologic free fluid in the pelvis
[2025-03-16 22:37] LABS: Calcium 8.9 mg/dl (8.4-10.2); Glucose 112 mg/dl (74-100)
[2025-03-16 23:00] VITALS: BP 121/90; PULSE 83; O2SAT 100
[2025-03-16] MEDS: SODIUM CHLORIDE 0.9% 10ML SYR (RAD ONLY) 10 ML IV (23:14)
[2025-03-16] MEDS: IOPAMIDOL-370 (76%);100ML BOTTLE 75 ML IV (23:14)
[2025-03-16 23:30] VITALS: BP 124/90; PULSE 105; O2SAT 97
[2025-03-16 23:45] VITALS: BP 124/90; RESP 79; O2SAT 100
[2025-03-17] MEDS: KETOROLAC 30MG/ML VIAL 30 MG IV (00:08)
[2025-03-17] MEDS: HYDROMORPHONE 2MG/ML SYRINGE 1 MG IV (00:08)
[2025-03-17] MEDS: ACETAMINOPHEN 500MG TAB 1000 MG PO (00:08)
[2025-03-17 00:10] LABS: Appearance,Urine CLEAR (Clear); Bilirubin,Urine Negative (Negative); Blood, Urine Negative (Negative); Color,Urine YELLOW (Yellow); Glucose,Urine (UA) Negative (Negative); Ketones,Urine Negative (Negative); Leukocyte Esterase,Urine Negative (Negative); Microscopic, Urine URINE MICROSCOPIC (MICROSCOPIC); Nitrate,Urine Negative (Negative); PH,Urine 7.5 (5.0-8.5); Protein,Urine Negative (Negative); Urobilinogen,Urine 0.2 EU/dl (0.2)
--- NOTE | 2025-03-17 00:10 | US_ITS ---
PROCEDURE INFORMATION: Exam: US Pelvis, Transvaginal, Non-Obstetric Exam date and time: 03/17/2025 12:18 AM Age: 30 years old Clinical indication: Pelvic pain; Prior surgery; Surgery date: 1-6 months; Surgery type: Hysterectomy; Additional info: Possible torsion TECHNIQUE: Imaging protocol: Real-time transvaginal pelvic (non-obstetric) ultrasound with image documentation. Transvaginal imaging was used for better evaluation of the endometrium, adnexa, and/or cervix. COMPARISON: CT ABDOMEN PELVIS W CON 03/16/2025 10:54 PM FINDINGS: Uterus: Hysterectomy. Right ovary/adnexa: Normal. No mass. Normal ovarian blood flow on color Doppler. Right ovary measures 3.3 x 2.6 x 2.3 cm. Left ovary/adnexa: Normal. No mass. Normal ovarian blood flow on color Doppler. Left ovary measures 3.2 x 2.7 cm. Urinary bladder: Urinary bladder is limited. Intraperitoneal space: Mild free fluid in the pelvis IMPRESSION: Hysterectomy Mild free fluid in the pelvis Ovaries unremarkable both show normal blood flow.
[2025-03-17 00:18] LABS: Bacteria,Urine Trace /lpf
[2025-03-17] MEDS: diazePAM 10MG/2ML SYRINGE 5 MG IV (01:19)
[2025-03-17] MEDS: DICYCLOMINE 20 MG/2ML VIAL IM (01:29)
[2025-03-17 01:35] VITALS: BP 116/52; PULSE 92; O2SAT 98
[2025-03-17 02:29] VITALS: BP 125/75; PULSE 84; O2SAT 97
[2025-03-17 03:21] VITALS: BP 130/72; PULSE 91; RESP 18; TEMP 37.1; O2SAT 100
== END 2025-03-17 03:25 | disposition home or self-care (01) ==
PROVIDERS: Emergency Medicine; Emergency Provider Emergency Medicine; PCP Nurse Practitioner
DX: R10.30 Lower abdominal pain, unspecified (principal); K52.9 Noninfective gastroenteritis and colitis, unspecified; N94.10 Unspecified dyspareunia
CPT/HCPCS: 51702; 74177; 76830; 80053; 81001; 83690; 84703; 85025; 96372; 96374; 96375; 96376; 99285; J0500; J1171; J1885; J2270; J2405; J3360; Q9967